=== PATIENT | female | born 1985 | race Caucasian/White ===

== ENCOUNTER 2016-11-25 01:05 | Inpatient (IN) | payer OTHER ==
[2016-11-25] MEDS ORDERED: TERBUTALINE 1 MG/ML VIAL SUBQ ONE (01:17)
[2016-11-25] MEDS: LACTATED RINGERS 1,000 ML IV SCH ×3 (01:17→03:45)
[2016-11-25] MEDS ORDERED: OXYTOCIN/LACTATED RINGERS 250 ML IV ONE ×2 (01:27→04:32)
[2016-11-25] MEDS ORDERED: SODIUM CHLORIDE FLUSH 0.9% 10 ML SYRINGE IVP ONE (01:57)
[2016-11-25] MEDS ORDERED: SODIUM CHLORIDE FLUSH 0.9% 10 ML SYRINGE IVP PRN (01:58)
[2016-11-25] MEDS ORDERED: fentaNYL 100 MCG/2 ML VIAL IVP PRN (01:58)
[2016-11-25] MEDS ORDERED: LACTATED RINGERS 1,000 ML IV SCH (02:00)
[2016-11-25] MEDS ORDERED: TERBUTALINE 1 MG/ML VIAL SUBQ SCH (02:00)
[2016-11-25] MEDS ORDERED: PHENYLEPHRINE 50 MG/5 ML VIAL IV ONE (02:01)
[2016-11-25] MEDS ORDERED: ePHEDrine 50 MG/ML VIAL IVP ONE (02:01)
--- NOTE | 2016-11-25 02:05 | HISTORY & PHYSICAL EXAMINATION ---
Admit History - Instructions [place]/Slash: -Left hand click circles element as positive or present. -Right hand click slashes element as negative or not present. - Visit Reason Visit Reason: Contractions (onset 1700), Membranes rupture (0015 this AM. [facility] noted. [facility] closed. Came here because of the urgency of the contractions) - : 3 Parity: 1 : 1 Care: positive: Danny Risk/History: positive: None Complications This : positive: None (heart burn) - Mother's Labs Mother's Blood Type: positive: A Mother's RH: positive: Positive GBS: positive: Group B Step Negative Rubella Status: positive: Immune (First child had Oligo and was induced at 39.1 weeks. this child has had normal JOSE GUADALUPE. Scheduled for industion 2016.) Meds/Allgy - Allergies Allergies/Adverse Reactions: Allergies Allergy/AdvReac Type Severity Reaction Status Date / Time Penicillins Allergy Unknown Verified 11/25/16 02:05 Physical - Abdominal Exam Vital Signs: Temp Pulse Resp BP Pulse Ox 35.6 C L 84 20 124/97 H 99 11/25/16 01:19 11/25/16 01:19 11/25/16 01:19 11/25/16 01:19 11/25/16 01:19 Contraction Intensity: positive: Strong Uterine Resting Tone: positive: Soft - Monitoring Heart Rate Baseline: 120 Strip Review: positive: Category II - Presentation Presentation: positive: Vertex - Vaginal Exam Membranes: positive: Membranes ruptured Dilation (in cm): 9 Effacement (%): 100% Station: positive: 1 Cervical Position: positive: Anterior - Speculum Exam Speculum Exam Performed: positive: No - Other Notes Labor Progress Note/Additional Text: Heart RR with out M Lungs clear Uterus is nontender Plan for Labor - Plan For Labor Plan for Labor: pt initially had decelerations to the 70's rebounded to base line. C/S team called in. Given sq Terbutaling to slow contractions. Decelerations resolving and variability returning. Intra thical placed. Cx progressing to complete will follow for possible .
[2016-11-25] MEDS ORDERED: LIDOCAINE 1% 50 ML MDV ONE (02:17)
[2016-11-25] MEDS ORDERED: MINERAL OIL LIGHT 10 ML MC ONE (02:17)
[2016-11-25 02:36] LABS: BASOPHILS # (AUTO) 0.1 10^3/uL (0.0-0.1); BASOPHILS % (AUTO) 0.6 %; EOSINOPHILS # (AUTO) 0.1 10^3/uL (0.0-0.7); EOSINOPHILS % (AUTO) 0.9 %; HCT - HEMATOCRIT 40.2 % (37.0-47.0); HGB - HEMOGLOBIN 13.4 g/dL (12.0-16.0); LYMPHOCYTES # (AUTO) 4.1 10^3/uL (1.5-3.5); LYMPHOCYTES % (AUTO) 24.8 %; MEAN CORPUSCULAR HEMOGLOBIN 32.1 pg (27.0-31.0); MEAN CORPUSCULAR HGB CONC 33.3 g/dL (32.0-36.0); MEAN CORPUSCULAR VOLUME 96.4 fL (81.0-99.0); MEAN PLATELET VOLUME 10.9 fL (7.9-10.8); MONOCYTES # (AUTO) 1.2 10^3/uL (0.0-1.0); NEUTROPHILS % (AUTO) 66.7 %; NUCLEATED RED BLOOD CELLS AUTO 0.1 /100WBC; RED BLOOD COUNT 4.17 10^6/uL (4.20-5.40); RED CELL DISTRIBUTION WIDTH 13.2 % (12.0-15.0); UNCORRECTED WHITE BLOOD COUNT 16.5 x10^3/uL; WHITE BLOOD COUNT 16.5 x10^3/uL (4.8-10.8)
--- NOTE | 2016-11-25 03:20 | PROVIDER PROGRESS NOTE ---
Labor Progress Note - Instructions [place]/Slash: -Left hand click circles element as positive or present. -Right hand click slashes element as negative or not present. - Uterine Monitoring Uterine Monitoring Mode: positive: External toco Contraction Frequency (min/apart): 2-3 min Contraction Intensity: positive: Strong Uterine Resting Tone: positive: Soft - Monitoring Monitor Mode: positive: Spiral electrode Heart Rate Baseline: 145 Heart Rate Variability: positive: Moderate (6-25 bmp) Decelerations: positive: Variable Strip Review: positive: Category II - Vaginal Exam Dilation (in cm): `10 Effacement (%): 100% Station: positive: 2 Cervical Position: positive: Anterior - Labor Progress Note Labor Progress Note/Additional Text: pt reached complete and started pushing Progressing
--- NOTE | 2016-11-25 04:12 | DELIVERY NOTE ---
Delivery Note - Instructions [place]/Slash: -Left hand click circles element as positive or present. -Right hand click slashes element as negative or not present. - Labor Labor: positive: Spontaneous - Delivery Method Delivery Method: positive: Vacuum assist - Presentation Presentation: positive: Vertex, CHARLI - left occiput anterior - Nuchal Cord Nuchal Cord: positive: Present (timesd one) - Anesthetic Anesthetic Type: Anesthetic: positive: Lidocaine - 1% plain Volume: positive: Other (10 ml) - Amniotic Fluid Description Amniotic Fluid Description: positive: Moderate meconium - Vacuum Use Indication for Vacuum Use: positive: Suspicion of immediate or potential compromise Type of Vacuum Cup: positive: Cup: Mushroom Type, Cup: Rigid Vacuum Extraction: positive: Successful (pulled thru 3 contractions excellent progress with each pull) Number of pop-offs: 2 - Episiotomy Type Episiotomy Type: positive: None - Laceration Laceration: positive: 1st degree - Suture Suture Type: positive: Chromic Suture Size: positive: 3-0 - Delivery Outcome Delivery Outcome: positive: Livebirth (live female apgars 8/9) - [place]: positive: Suctioned, Stimulated, Warmer used sex: positive: Female - Cord Cord: positive: 3 vessels - Placenta Placenta: positive: Intact, Spontaneous - Estimated Blood Loss Estimated Blood Loss (in cc): 200 - Delivery Comments (Free Text/Narrative) Delivery Comments (Free Text/Narrative): SROM 0015 Complete 0218 Vacuum applied at +3 for deep decelerations Pulled with 3 contractions excellent progress. 2 popoffs Delivery 0334 Placenta complete at 0341. Live female 8/9 pH 7.3
[2016-11-25] MEDS ORDERED: oxyCODONE 5 MG TABLET PO PRN (04:32)
[2016-11-25] MEDS ORDERED: WITCH HAZEL/GLYCERIN 1 EACH MED..PAD TOP PRN (04:32)
[2016-11-25] MEDS ORDERED: HYDROCORTISONE 1% CREAM 28 GM TUBE PR PRN (04:32)
[2016-11-25] MEDS ORDERED: diphenhydrAMINE 25 MG CAPSULE PO PRN (04:32)
[2016-11-25] MEDS ORDERED: HYDROCORTISONE/PRAMOXINE 10 GM PR PRN (04:32)
[2016-11-25] MEDS: IBUPROFEN 800 MG TABLET PO SCH ×3 (05:03→16:53)
[2016-11-25] MEDS: ACETAMINOPHEN 325 MG TABLET PO PRN ×2 (06:32→20:51)
[2016-11-25] MEDS: DOCUSATE SODIUM 100 MG CAPSULE PO SCH ×2 (11:11→20:51)
[2016-11-25] MEDS: SIMETHICONE CHEW 80 MG TABLET PO SCH ×3 (11:12→17:04)
[2016-11-25] MEDS: SODIUM CHLORIDE FLUSH 0.9% 10 ML SYRINGE IVP SCH ×2 (16:45→16:48)
[2016-11-26] MEDS: IBUPROFEN 800 MG TABLET PO SCH ×4 (05:16→13:12)
[2016-11-26] MEDS: SODIUM CHLORIDE FLUSH 0.9% 10 ML SYRINGE IVP SCH (05:18)
[2016-11-26 06:22] LABS: BASOPHILS % (AUTO) 0.5 %; EOSINOPHILS # (AUTO) 0.1 10^3/uL (0.0-0.7); EOSINOPHILS % (AUTO) 0.7 %; HGB - HEMOGLOBIN 12.3 g/dL (12.0-16.0); LYMPHOCYTES # (AUTO) 1.6 10^3/uL (1.5-3.5); LYMPHOCYTES % (AUTO) 17.2 %; MEAN CORPUSCULAR HEMOGLOBIN 32.7 pg (27.0-31.0); MEAN CORPUSCULAR HGB CONC 33.2 g/dL (32.0-36.0); MEAN CORPUSCULAR VOLUME 98.4 fL (81.0-99.0); MEAN PLATELET VOLUME 9.7 fL (7.9-10.8); MONOCYTES # (AUTO) 0.3 10^3/uL (0.0-1.0); MONOCYTES % (AUTO) 3.8 %; NEUTROPHILS # (AUTO) 7.1 10^3/uL (1.5-6.6); NEUTROPHILS % (AUTO) 77.8 %; RED BLOOD COUNT 3.76 10^6/uL (4.20-5.40); RED CELL DISTRIBUTION WIDTH 13.4 % (12.0-15.0); UNCORRECTED WHITE BLOOD COUNT 9.1 x10^3/uL; WHITE BLOOD COUNT 9.1 x10^3/uL (4.8-10.8)
[2016-11-26] MEDS: DOCUSATE SODIUM 100 MG CAPSULE PO SCH (09:54)
--- NOTE | 2016-11-26 11:54 | PROVIDER PROGRESS NOTE ---
Subjective - Prog Note Date Prog Note Date: 11/26/16 Prog Note Time: 11:52 - Subjective Pt reports feeling: Improved Subjective: Patient lying in bed. on the couch with the baby. States bleeding is scant. Ambulating and tolerating a regular diet. Pain controlled with po meds. Baby latching well. Harman in-situ and draining. Patient had 1200 cc post void residual yesterday. Desires to go home today. Objective - Vital Signs/Intake & Output Reviewed Vital Signs: Yes Vital Signs: Vital Signs x48h Temp Pulse Resp BP Pulse Ox 11/26/16 08:15 98.2 F 64 16 102/63 100 11/26/16 05:30 97.2 F L 63 16 111/67 99 Intake & Output: Intake & Output 11/23/16 11/24/16 11/25/16 11/26/16 23:59 23:59 23:59 23:59 Intake Total 950 Output Total 7450 3100 Balance -6500 -3100 - Objective General Appearance: positive: No acute distress Abdomen: positive: Non-tender (Firm fundus) Neurologic/Psychiatric: positive: Oriented x3 - Lab Results Fish Bones: 11/26/16 06:10 Other Labs: Lab Results x24hrs 11/26/16 Range/Units 06:10 WBC 9.1 (4.8-10.8) x10^3/uL RBC 3.76 L (4.20-5.40) 10^6/uL Hgb 12.3 (12.0-16.0) g/dL Hct 37.0 (37.0-47.0) % MCV 98.4 (81.0-99.0) fL MCH 32.7 H (27.0-31.0) pg MCHC 33.2 (32.0-36.0) g/dL RDW 13.4 (12.0-15.0) % Plt Count 107 L (130-450) 10^3/uL MPV 9.7 (7.9-10.8) fL Neut # 7.1 H (1.5-6.6) 10^3/uL Lymph # 1.6 (1.5-3.5) 10^3/uL [place] # 0.3 (0.0-1.0) 10^3/uL Eos # 0.1 (0.0-0.7) 10^3/uL Baso # 0.0 (0.0-0.1) 10^3/uL Absolute Nucleated RBC 0.00 x10^3/uL Nucleated RBCs 0.0 /100WBC Assessment/Plan - Problem List (1) Vaginal delivery Impression: 31 yo S/p VAVD 11/25/2016 for NRFHT's Normal recovery Discharge to home Home Rx for docusate, ibuprofen and vicodin Follow up with Dr. Jarquin in 6 weeks for a routine exam Call for worsening fevers, chills, abdominal pain or vaginal bleeding (2) Urinary retention Impression: Urinary retention 2nd On bladder rest with harman catheter in place Will keep the patient with harman in-situ for about a week Patient to see Dr. Jarquin or Monday for follow up Rx for cephalexin 500 mg QD for UTI prophylaxis Discharge Plan Disposition: Home, Self Care Condition: Good Diet: Regular Activity Restrictions: Pelvic rest Shower Restrictions: No Driving Restrictions: Yes (Do not drive after taking hydrocodone) Weight Bearing: Full Weight Instruction Topics: Catheter PD and Exit Site Care, Catheter Bag Urinary Empty Clean, Leg Bag Care Dc No Smoking: If you smoke, Please STOP! Call for help.
[2016-11-26] MEDS: SIMETHICONE CHEW 80 MG TABLET PO SCH (13:12)
[2016-11-26 15:47] VITALS: BP 103/66
--- NOTE | 2016-11-27 10:39 | DISCHARGE SUMMARY ---
DATE OF ADMISSION: 11/25/2016 DATE OF DISCHARGE: 11/26/2016 DIAGNOSES ON ADMISSION 1. A 31-year-old G3, P1-0-1-1 with a 40 weeks and 5/7 days' . 2. Active labor. DIAGNOSES ON DISCHARGE 1. A 31-year-old G3, P2-0-1-2 status post vacuum-assisted vaginal delivery on 11/25/2016 for nonreass uring heart tones. 2. Urinary retention with otherwise normal recovery. BRIEF HISTORY: This is a patient of [facility] who presented in active labor. Unfortunately, since the hospital has been undergoing repairs, they are closed and are sending their patients to outlying hospitals. The patient states that she started having contractions on 7 at about 1700 hours. Spontaneous rupture of membranes occurred at about 0015 on 11/25/2016. Initial examination showed that she was 9 cm dilated, 100% effaced, and +1 station. Initial heart tone s showed that the baby was having decelerations down to the 70s. The patient was given terbutaline in order to slow her contractions. An intrathecal injection was given for pain control. Despite the lat e decelerations, the patient did progress and she delivered via a vacuum-assisted vaginal delivery. D espite 2 pop-offs, there was good progress over 3 contractions. The patient delivered a viable female with Apgars of 8 and 9 at one and five minutes, respectively. PH was noted at 7.3. The patien t sustained an estimated blood loss of 200 mL as well as a first-degree laceration. The patient's postoperative course has been complicated by urinary retention. Apparently, this happen ed after her first delivery. The patient attempted to void, but was unable to. A Honeycutt catheter was p laced in her bladder and 1200 mL of urine was obtained. Given the patient's vacuum-assisted vaginal d elivery, history of prior urinary retention, as well as a significant amount of urine, we have electe d to keep the Honeycutt in situ and let her bladder rest and recover over a week's period. The patient wi ll be sent home with a leg bag and will be instructed to follow up in about a week for reevaluation. The patient's course otherwise has been unremarkable. She is ambulating and tolerating a r egular diet. Her pain is controlled with oral medications and her lochia is normal. The patient will be discharged to home with prescriptions for docusate, ibuprofen and Vicodin. In add ition, she will be given a prescription for Keflex for UTI prophylaxis. The patient has been given in structions to call should she have any worsening fevers, chills, abdominal pain or vaginal bleeding. JOB #: [id number] EXT JOB #:[id number]
--- NOTE | 2016-11-28 06:47 | DISCHARGE SUMMARY ---
DATE OF ADMISSION: 11/25/2016 DATE OF DISCHARGE: 11/26/2016 DIAGNOSES ON ADMISSION 1. A 31-year-old, G3, P1-0-1-1, with a 40-5/7-week intrauterine . 2. Spontaneous rupture of membranes. 3. Active labor. DIAGNOSES ON DISCHARGE 1. A 31-year-old, G3, P2-0-1-2, status post spontaneous vaginal delivery on 11/25/2016. 2. Urinary retention. 3. Otherwise normal recovery. BRIEF HISTORY: This is a patient of the [facility] who presented to [facility] on 11/25/2016. Due to the [facility] being shut down for repairs, patient w as sent over to our hospital. The patient noted that she had contractions that started about 1700 fina rs on 11/24/2016. Spontaneous rupture of membranes were noted at 0015 hours on 11/25/2016. On initial examination, her cervix was found to be 9 cm dilation, 100% effacement, and +1 station. Ernesto alvarez underwent a vacuum-assisted vaginal delivery on 11/25/2016 secondary to nonreassuring hea rt tones. The vacuum was due to deep decelerations. After 2 popoffs and over 3 contractions, patient spontaneously delivered a viable female with Apgars 8 and 9 at one and five minutes, respectiv kayli; pH was 7.3. Patient sustained a first-degree laceration that was repaired with 3-0 chromic. EBL was 200 mL. The patient was noted to have urinary retention with her first delivery. After this delivery, she aga in has urinary retention with a postvoid residual of approximately 1200 mL. Patient was given a Honeycutt catheter and will be continued on urinary rest for at least a week. The patient will be discharged t o home with a leg bag. Patient's course otherwise has been unremarkable. She is ambulating and tolerating a regul ar diet. Her pain is controlled with oral medications, and her lochia is mild. Patient will be discha rged home with prescriptions for Vicodin, as well as ibuprofen. Patient is follow up at [facility] for a voiding trial. The patient will be given instructions to call lenore ld she have worsening fevers, chills, abdominal pain, or vaginal bleeding. JOB #: [id number] EXT JOB #:[id number]
== END 2016-11-26 15:20 | disposition home or self-care (01) | DRG 774 ==
LOC: WFO 01:05 → OB 01:09 → WFO 01:58 → OB 01:59
PROVIDERS: ADMIT Obstetrics & Gynecology; ATTEND Obstetrics & Gynecology
PROC: 10D07Z6 Extraction of Products of Conception, Vacuum, Via Natural or Artificial Opening (ICD-10-PCS; principal; 2016-11-25)
PROC: 0HQ9XZZ Repair Perineum Skin, External Approach (ICD-10-PCS; 2016-11-25)
DX: O48.0 Post-term pregnancy (principal); O90.89 Other complications of the puerperium, not elsewhere classified; O76 Abnormality in fetal heart rate and rhythm complicating labor and delivery; R33.9 Retention of urine, unspecified; O69.81X0 Labor and delivery complicated by cord around neck, without compression, not applicable or unspecified; O77.0 Labor and delivery complicated by meconium in amniotic fluid; O70.0 First degree perineal laceration during delivery; Z3A.40 40 weeks gestation of pregnancy; Z37.0 Single live birth
CPT/HCPCS: 36415; 85025; 88307; 99212